=== PATIENT | male | born 1975 | race Caucasian/White ===

== ENCOUNTER 2019-08-14 14:34 | Emergency (ER) | payer OTHER ==
[~2019-08-14] VITALS: Ht 182.9 cm; Wt 86.2 kg
[2019-08-14] MEDS ORDERED: AMLO10 PO (15:05)
[2019-08-14] MEDS ORDERED: ZOLP10 PO (15:06)
[2019-08-14] MEDS ORDERED: Norvasc10 MG PO (15:07)
[2019-08-14] MEDS ORDERED: Ambien10 MG PO (15:07)
== END 2019-08-14 15:09 | disposition home or self-care (01) ==
LOC: ER 14:34
DX: Z76.0 Encounter for issue of repeat prescription (principal); I10 Essential (primary) hypertension; Z79.899 Other long term (current) drug therapy
CPT/HCPCS: 99281

== ENCOUNTER 2019-10-30 14:11 | Emergency (ER) | payer OTHER ==
[~2019-10-30] VITALS: Ht 182.9 cm; Wt 88.5 kg
[~2019-10-30 14:11] MED LIST: AMLO10 PO; Ambien10 MG PO; Norvasc10 MG PO; ZOLP10 PO
[2019-10-30] MEDS ORDERED: Prinivil10 MG (14:37)
[2019-10-30] MEDS ORDERED: BENZ100A PO (15:46)
[2019-10-30] MEDS ORDERED: Prinivil10 MG PO (15:46)
[2019-10-30] MEDS ORDERED: Ambien10 MG PO (15:46)
== END 2019-10-30 15:59 | disposition home or self-care (01) ==
LOC: ER 14:11
DX: J11.1 Influenza due to unidentified influenza virus with other respiratory manifestations (principal); Z76.0 Encounter for issue of repeat prescription; I10 Essential (primary) hypertension; G47.00 Insomnia, unspecified; Z79.899 Other long term (current) drug therapy
CPT/HCPCS: 71046; 99283-25